=== PATIENT | male | born 1960 | race Caucasian/White ===

== ENCOUNTER 2017-03-27 00:35 | Emergency (ER) | payer BC ==
[~2017-03-27] VITALS: Ht 182.9 cm; Wt 85.0 kg
[2017-03-27 00:39] VITALS: BP 151/88; TEMP 97.7
[2017-03-27 01:39] LABS: BASO # 0.1 (0.0-0.2); BASO % 1.2 % (0.0-2.0); EOS # 0.4 (0.0-0.7); EOS % 5.3 % (0-4.0); GRAN # 4.2 (1.4-6.5); GRAN % 53.9 % (42.2-75.2); HEMATOCRIT 37.9 % (42.0-52.0); HEMOGLOBIN 12.8 g/dl (13.5-18.0); LYMPH # 2.5 (1.2-3.4); LYMPH % 32.4 % (20.0-51.0); MEAN CELL VOLUME 91 fl (80.0-100.0); MEAN CORPUSCULAR HEMOGLOBIN 31 pg (27.0-31.0); MEAN CORPUSCULAR HGB CONC 34 g/dl (33.0-37.0); MEAN PLATELET VOLUME 8.2 fl (7.4-10.4); MONO # 0.5 (0.1-0.6); MONO % 6.7 % (1.7-9.3); PLATELET COUNT 309 K/mm3 (130-400); RED BLOOD COUNT 4.16 M/mm3 (4.20-5.60); REDCELL DISTRIBUTION WIDTH-CV 13.6 % (11.5-14.5)
[2017-03-27 03:21] VITALS: PULSE 73
== END 2017-03-27 03:20 | disposition home or self-care (01) ==
LOC: COL.ER 00:35
PROVIDERS: Emergency Medicine
DX: M25.461 Effusion, right knee (principal); G89.18 Other acute postprocedural pain; M25.561 Pain in right knee; F17.220 Nicotine dependence, chewing tobacco, uncomplicated

== ENCOUNTER → 2018-07-13 | Outpatient (CLI) | payer BC | LOC: COL.RAD 08:29 | DX: M25.561 Pain in right knee (principal) | CPT/HCPCS: A9503 ==